=== PATIENT | male | born 1980 | race Asian ===

== ENCOUNTER 2017-10-22 17:10 | Emergency (ER) | payer BC ==
[~2017-10-22] VITALS: Ht 172.7 cm; Wt 76.2 kg
[2017-10-22 18:33] LABS: PLATELET COUNT 185 K/uL (142-355)
[2017-10-22 18:37] LABS: POTASSIUM 4.1 mmol/L (3.6-5.2)
[2017-10-22 19:47] VITALS: BP 120/74; TEMP 100.7
== END 2017-10-22 19:48 | disposition home or self-care (01) ==
LOC: ED 17:10
PROVIDERS: Specialist
DX: J11.1 Influenza due to unidentified influenza virus with other respiratory manifestations (principal); I95.9 Hypotension, unspecified; E86.0 Dehydration
CPT/HCPCS: 36415; 80048; 81000; 83605; 85027; 87804; 96365; 96374; 99284; J1885

== ENCOUNTER 2020-12-07 16:02 | Outpatient (CLI) | payer BC | END 2020-12-07 21:00 | disposition home or self-care (01) | LOC: RAD 16:02 | PROVIDERS: ATTEND Nurse Practitioner Family | DX: M54.5 Low back pain (principal) ==

== ENCOUNTER 2022-05-16 07:28 | Outpatient (CLI) | payer BC | END 2022-05-16 19:48 | disposition home or self-care (01) | LOC: US 07:28 | PROVIDERS: ATTEND Nurse Practitioner Family | DX: R14.0 Abdominal distension (gaseous) (principal); R53.83 Other fatigue ==